=== PATIENT | female | born 1990 | race Caucasian/White ===

== ENCOUNTER 2017-03-24 21:23 | Emergency (ER) | payer MEDICARE | END 2017-03-24 21:34 | disposition left against medical advice (07) | LOC: ER 21:23 | DX: Z53.21 Procedure and treatment not carried out due to patient leaving prior to being seen by health care provider (principal) ==

== ENCOUNTER 2017-03-25 19:43 | Emergency (ER) | payer MEDICARE | END 2017-03-26 01:10 | disposition home or self-care (01) | LOC: ER 19:43 | DX: Z04.6 Encounter for general psychiatric examination, requested by authority (principal); F17.210 Nicotine dependence, cigarettes, uncomplicated; Z98.51 Tubal ligation status | CPT/HCPCS: 36415; 80307; G0480 ==